=== PATIENT | male | born 1970 | race Two or more races ===

== ENCOUNTER 2023-06-28 13:32 | Inpatient (IN) | payer OTHER ==
[~2023-06-28] VITALS: Ht 170.2 cm; Wt 72.6 kg
[2023-06-28] MEDS ORDERED: FENOFIBRATE150 MG PO (13:39)
[2023-06-28] MEDS ORDERED: EZETIMIBE10 MG PO (13:40)
[2023-06-28] MEDS ORDERED: JANUMET XR 1001 EACH PO (13:40)
[2023-06-28] MEDS ORDERED: ROGAINE60 GM (13:40)
[2023-06-28] MEDS ORDERED: EZALLOR SPRINKL20 MG PO (13:41)
[2023-06-28] MEDS ORDERED: FARXIGA10 MG PO (13:41)
[2023-06-28] MEDS ORDERED: KAPSPARGO SPRI200 MG PO (13:41)
[2023-06-28] MEDS ORDERED: KLOR-CON8 MEQ PO (13:41)
[2023-06-28] MEDS ORDERED: CARDURA XL4 MG PO (13:42)
[2023-06-28] MEDS ORDERED: AMLODIPINE-OLM1 EAC3 PO (13:42)
[2023-06-28] MEDS ORDERED: ENALAPRIL MALEA10 MG PO (13:43)
[2023-06-28] MEDS ORDERED: HYDRODIURIL12.5 MG PO (13:43)
[2023-06-28 15:47] LABS: HEMATOCRIT 44.3 % (39.0-48.0); MEAN CELL VOLUME 94.5 fL (80.0-100.00); MEAN CORPUSCULAR HEMOGLOBIN 31.9 pg (27.00-32.0); MEAN CORPUSCULAR HGB CONC 33.8 g/dl (32.0-36.0); PLATELET COUNT 148 K/uL (150-450); RED BLOOD COUNT 4.69 M/uL (4.00-6.00); RED CELL DISTRIBUTION WIDTH 13.7 % (11.5-14.5)
[2023-06-28 16:31] LABS: CALCIUM 8.8 mg/dL (8.5-10.1); CREATININE SERUM 0.93 mg/dL (0.70-1.30); GFR 84.67; POTASSIUM 3.32 mEq/L (3.5-5.1)
[2023-06-28 19:47] LABS: D DIMER 0.91 MG/L; PARTIAL THROMBOPLASTIN TIME 30.3 SECONDS (22.0-34.0)
[2023-06-28 19:50] LABS: INR 1.03; PROTHROMBIN TIME 10.8 SECONDS (9.0-11.5)
[2023-06-28 20:17] LABS: PH,URINE 5.5 (5.0-8.0); URINE APPEARANCE Clear; URINE BILIRRUBIN Negative (NEGATIVE); URINE BLOOD Small; URINE COLOR Yellow; URINE LEUKOCYTE Negative; URINE NITRATE Negative; URINE UROBILINOGEN 0.2 E.U./dl
[2023-06-28 20:21] LABS: URINE EPITHELIAL CELLS 2.1 uL (0.0-38.8); URINE RBC 12.6 uL (0.0-20.8)
[2023-06-28 20:24] LABS: URINE GLUCOSE >=1000 MG/DL (NEGATIVE); URINE PROTEIN 100 (NEGATIVE); URINE WBC 0.6 uL (0.0-23.2)
[2023-06-28 23:27] LABS: ABG PH 7.482 (7.35-7.45); ABG pCO2 33.7 mmHg (35-45)
[2023-06-28 23:28] LABS: BASE EXCESS 1.8 mmol/l; BICARBONATE 24.7 mmol/l (23-25); Tco2 25.7 mmol/l; allen test SATISFACTORY; o2 21 %; puncture site RADIAL RIGHT
[2023-06-28 23:30] LABS: ABG PH 7.446 (7.35-7.45); ABG PO2 52.3 mmHg (80-100); ABG pCO2 34.7 mmHg (35-45); BASE EXCESS -0.1 mmol/l
[2023-06-28 23:31] LABS: BICARBONATE 23.3 mmol/l (23-25); Tco2 24.4 mmol/l; allen test SATISFACTORY; o2 35 %; puncture site RADIAL RIGHT
[2023-06-28 23:32] LABS: SaO2 88.2 %
[2023-06-29 07:27] LABS: HEMATOCRIT 39.9 % (39.0-48.0); HEMOGLOBIN 14.2 g/dL (13-16.00); MEAN CELL VOLUME 93.8 fL (80.0-100.00); MEAN CORPUSCULAR HEMOGLOBIN 33.3 pg (27.00-32.0); MEAN CORPUSCULAR HGB CONC 35.5 g/dl (32.0-36.0); PLATELET COUNT 151 K/uL (150-450); RED BLOOD COUNT 4.25 M/uL (4.00-6.00); RED CELL DISTRIBUTION WIDTH 13.9 % (11.5-14.5)
[2023-06-29 08:10] LABS: ALBUMIN 3.3 gm/dL (3.4-5.0); BILIRUBIN TOTAL 0.33 mg/dL (0.3-1.2); CALCIUM 8.7 mg/dL (8.5-10.1); CREATININE SERUM 0.86 mg/dL (0.70-1.30); GFR 92.67; GLOBULINA 3.4 G/DL (2.4-3.5); MAGNESIUM 2.3 mg/dL (1.8-2.4); POTASSIUM 3.67 mEq/L (3.5-5.1); TOTAL PROTEIN 6.7 gm/dL (6.4-8.2); TSH 0.521 uIU/mL (0.358-3.74)
[2023-06-29 08:25] LABS: C-REACTIVE PROTEIN 6.1 MG/DL (0.00-0.29)
[2023-06-29 08:52] LABS: ABG PH 7.451 (7.35-7.45); ABG PO2 78.2 mmHg (80-100); ABG pCO2 34.6 mmHg (35-45); BASE EXCESS 0.2 mmol/l; BICARBONATE 23.5 mmol/l (23-25); SaO2 96.1 %; Tco2 24.6 mmol/l
[2023-06-29 09:44] LABS: allen test SATISFACTORY; o2 35 %; puncture site RADIAL RIGHT
[2023-07-01 07:22] LABS: ALBUMIN 3.5 gm/dL (3.4-5.0); CALCIUM 9.1 mg/dL (8.5-10.1); CREATININE SERUM 0.86 mg/dL (0.70-1.30); GFR 92.67; PHOSPHOROUS 3.3 mg/dL (2.5-4.9); POTASSIUM 3.6 mEq/L (3.5-5.1)
[2023-07-02 06:39] LABS: HEMATOCRIT 44.7 % (39.0-48.0); HEMOGLOBIN 15.4 g/dL (13-16.00); MEAN CORPUSCULAR HEMOGLOBIN 32.7 pg (27.00-32.0); MEAN CORPUSCULAR HGB CONC 34.5 g/dl (32.0-36.0); PLATELET COUNT 179 K/uL (150-450); RED CELL DISTRIBUTION WIDTH 13.9 % (11.5-14.5)
[2023-07-02 21:35] LABS: ABG PO2 61.2 mmHg (80-100); ABG pCO2 36.6 mmHg (35-45); BASE EXCESS 2.6 mmol/l; BICARBONATE 26.1 mmol/l (23-25); SaO2 92.9 %
[2023-07-02 21:36] LABS: Tco2 27.2 mmol/l; allen test SATISFACTORY; o2 21 %; puncture site RADIAL RIGHT
[2023-07-03] MEDS ORDERED: FARXIGA10 MG PO (13:34)
[2023-07-03] MEDS ORDERED: CARDURA XL4 MG PO (13:34)
[2023-07-03] MEDS ORDERED: ENALAPRIL MALEA10 MG PO (13:34)
[2023-07-03] MEDS ORDERED: JANUMET XR 1001 EACH PO (13:34)
[2023-07-03] MEDS ORDERED: EZALLOR SPRINKL20 MG PO (13:34)
[2023-07-03] MEDS ORDERED: ROGAINE60 GM PO (13:34)
[2023-07-03] MEDS ORDERED: LEVOFLOXACIN750 MG PO (13:34)
[2023-07-03] MEDS ORDERED: XOPENEX CO1.25 MG/0. IH (13:34)
[2023-07-03] MEDS ORDERED: TOPROL XL25 M1 PO (13:34)
[2023-07-03] MEDS ORDERED: HYDROCHLOROTHIA25 MG PO (13:34)
[2023-07-03] MEDS ORDERED: BENZONATATE200 M1 PO (13:34)
[2023-07-03] MEDS ORDERED: POM (MEDICAMENTO EN PO (13:34)
[2023-07-03] MEDS ORDERED: FENOFIBRATE150 MG PO (13:34)
[2023-07-03] MEDS ORDERED: EZETIMIBE10 MG PO (13:34)
== END 2023-07-03 14:54 | disposition home or self-care (01) | DRG 194 ==
LOC: ER 13:32 → MEDJ 19:09
PROVIDERS: General Practice; Internal Medicine; Internal Medicine Infectious Disease; ADMIT Internal Medicine Geriatric Medicine; ATTEND Internal Medicine Geriatric Medicine
PROC: 4A12X4Z Monitoring of Cardiac Electrical Activity, External Approach (ICD-10-PCS; principal; 2023-06-29)
DX: J10.1 Influenza due to other identified influenza virus with other respiratory manifestations (principal); J44.1 Chronic obstructive pulmonary disease with (acute) exacerbation; J18.9 Pneumonia, unspecified organism; I10 Essential (primary) hypertension; E78.5 Hyperlipidemia, unspecified; E11.65 Type 2 diabetes mellitus with hyperglycemia; Z79.4 Long term (current) use of insulin; F17.200 Nicotine dependence, unspecified, uncomplicated; Z20.822 Contact with and (suspected) exposure to COVID-19